=== PATIENT | male | born 1975 | race Caucasian/White ===

== ENCOUNTER 2022-07-17 14:13 | Day surgery (SDC) | payer BC ==
[~2022-07-17] VITALS: Ht 170.2 cm; Wt 82.3 kg
[2022-07-17] MEDS ORDERED: BOOSTRIX/ADACEL VACCINE (DIPHTH/PERTUSS/ACELL/TETANUS) 0.5ML SYR IM ONE (15:45)
[2022-07-17] MEDS ORDERED: ceFAZolin SOD 1 GM in D5W MINI-BAG PLUS 50 ML IV ONE (16:10)
[2022-07-17 16:50] LABS: BASO # 0.1 10^3/uL (0.0-0.2); BASO % 1.1 % (0.0-1.0); EOS # 0.2 10^3/uL (0.0-0.5); EOS % 2.3 % (0.0-3.0); HEMATOCRIT 48.1 % (42.0-52.0); LYMPH # 1.2 10^3/uL (1.5-5.0); LYMPH % 14.3 % (24.0-44.0); MEAN CORPUSCULAR HEMOGLOBIN 33.6 pg (27.0-33.0); MEAN CORPUSCULAR HGB CONC 35.3 g/dl (32.0-36.5); MEAN CORPUSCULAR VOLUME 95.1 fl (80.0-96.0); MONO # 0.6 10^3/uL (0.0-0.8); MONO % 7.1 % (2.0-8.0); NEUTROPHILS # 6.2 10^3/uL (1.5-8.5); NEUTROPHILS % 74.8 % (36.0-66.0); PLATELET COUNT, AUTOMATED 262 10^3/uL (150-450); RED BLOOD COUNT 5.06 10^6/uL (4.30-6.10); WHITE BLOOD COUNT 8.3 10^3/uL (4.0-10.0)
[2022-07-17] MEDS ORDERED: LIDOCAINE 2% 100MG/5ML SDV (FOR ANES.) As Ordered ONE (18:22)
[2022-07-17] MEDS ORDERED: propofoL 200 MG/20 ML VIAL As Ordered ONE (18:22)
[2022-07-17] MEDS ORDERED: MIDAZOLAM INJ 2MG/2ML VIAL (J2250 PER 1MG) As Ordered ONE (18:23)
[2022-07-17] MEDS ORDERED: fentaNYL 100 MCG/2 ML INJECTION As Ordered ONE (18:23)
[2022-07-17] MEDS ORDERED: BACITRACIN OINTMENT 30GM TUBE As Ordered ONE (18:33)
[2022-07-17] MEDS ORDERED: BUPIVACAINE HCL 0.25% 30ML VIAL As Ordered ONE (18:33)
[2022-07-17] MEDS ORDERED: ONDANSETRON 4MG 2ML VIAL As Ordered ONE (19:06)
[2022-07-17] MEDS ORDERED: dexameTHASONE 4 MG/ML 1ML VIAL (J1100 PER 1MG) As Ordered ONE (19:06)
[2022-07-17] MEDS ORDERED: ACETAMINOPHEN 1000MG 100ML IV BTL (OFIRMEV) (J0131 PER 10MG) As Ordered ONE (19:11)
[2022-07-17] MEDS ORDERED: PHENYLephrine 500MCG 5ML (100MCG/ML) SYRINGE As Ordered ONE (19:13)
[2022-07-17] MEDS ORDERED: ceFAZolin 2 GM/D5W 50 ML IV BAG (J0690 PER 500MG) As Ordered ONE (19:14)
[2022-07-17] MEDS ORDERED: KETOROLAC 60MG 2ML VIAL As Ordered ONE (19:49)
[2022-07-17] MEDS ORDERED: MORPHINE 2 MG/ML 1ML VIAL IV PRN (20:15)
[2022-07-17] MEDS ORDERED: ONDANSETRON 4MG 2ML VIAL IV PRN (20:15)
[2022-07-17] MEDS ORDERED: LR 1,000 ML IV SCH (20:15)
[2022-07-17] MEDS ORDERED: oxyCODONE 5MG TAB PO PRN (20:15)
[2022-07-17] MEDS ORDERED: fentaNYL 100 MCG/2 ML INJECTION IV PRN (20:15)
[2022-07-17] MEDS ORDERED: CEPH500C PO (20:34)
[2022-07-17] MEDS ORDERED: OXYC1TAB23 PO (20:34)
[2022-07-17 20:54] VITALS: BP 155/89
== END 2022-07-17 21:23 | disposition home or self-care (01) ==
LOC: M ED 14:13 → M SDC 14:14
PROVIDERS: ATTEND Orthopaedic Surgery Hand Surgery
DX: S68.623A Partial traumatic transphalangeal amputation of left middle finger, initial encounter (principal); S68.625A Partial traumatic transphalangeal amputation of left ring finger, initial encounter; W31.2XXA Contact with powered woodworking and forming machines, initial encounter; Y92.008 Other place in unspecified non-institutional (private) residence as the place of occurrence of the external cause; Y99.8 Other external cause status; Y93.D3 Activity, furniture building and finishing; Z23 Encounter for immunization
CPT/HCPCS: 11010; 11012; 26350; 26765; 36415; 73140; 76000; 80047; 85025; 87635; 90471; 96365; 99284; J0131; J0690; J1100; J1885; J2250; J2370; J2405; J3010

== ENCOUNTER → 2022-07-23 | Outpatient (CLI) | payer BC ==
[~2022-07-23] MED LIST: CEPH500C PO; OXYC1TAB23 PO
== END ==
LOC: M SOG 07:56
PROVIDERS: ATTEND Orthopaedic Surgery Hand Surgery
DX: Z48.89 Encounter for other specified surgical aftercare (principal); S62.633D Displaced fracture of distal phalanx of left middle finger, subsequent encounter for fracture with routine healing

== ENCOUNTER → 2022-08-13 | Outpatient (CLI) | payer BC | LOC: M SOG 08:12 | PROVIDERS: ATTEND Orthopaedic Surgery Hand Surgery | DX: S62.633D Displaced fracture of distal phalanx of left middle finger, subsequent encounter for fracture with routine healing (principal); S62.625D Displaced fracture of middle phalanx of left ring finger, subsequent encounter for fracture with routine healing ==